=== PATIENT | female | born 1960 | race Caucasian/White ===

== ENCOUNTER 2016-11-22 05:31 | Outpatient (CLI) | payer OTHER ==
[~2016-11-22] VITALS: Ht 167.6 cm; Wt 90.7 kg
[~2016-11-22 05:31] MED LIST: CYCL10TA9 PO; DIABETIC; ENAL5TAB; ESTR1PAT33 TD; EXEN10PE SQ; FLUO20CA25 PO; GLIM1TAB; GLIM2TAB PO; HCT25T PO; HYDR-707 PO; ISN300T; MULT-974 PO; NFMET1000 PO; PYRI50TA; estrogen patch
[2016-11-22] MEDS ORDERED: FURO20TA4 PO (15:33)
[2016-11-22] MEDS ORDERED: DULA0.75 SQ (15:33)
[2016-11-22] MEDS ORDERED: DAPA10TA PO (15:33)
[2016-11-22] MEDS ORDERED: ASPI-586 PO (15:34)
[2016-11-25] MEDS ORDERED: HYDR-3820 PO (11:03)
== END 2016-11-22 15:39 ==
LOC: PREOP 05:31
PROVIDERS: ATTEND Surgery
DX: Z01.818 Encounter for other preprocedural examination (principal); L72.3 Sebaceous cyst

== ENCOUNTER 2016-11-25 07:47 | Day surgery (SDC) | payer OTHER ==
[~2016-11-25] VITALS: Ht 167.6 cm; Wt 90.7 kg
[~2016-11-25 07:47] MED LIST changes: +ASPI-586 PO; +DAPA10TA PO; +DULA0.75 SQ; +FURO20TA4 PO
--- NOTE | 2016-11-25 07:56 | Progress Note-Pre Operative ---
Pre-Operative Progress Note H&P Reviewed The H&P was reviewed, patient examined and no changes noted. Date Seen by Provider: Nov 16, 2016 Time Seen by Provider: 11:00 Date H&P Reviewed: Nov 25, 2016 Time H&P Reviewed: 07:56 Pre-Operative Diagnosis: sebaceous cyst of upper abdominal wall BIANCA PÉREZ MD Nov 25, 2016 7:56 am
[2016-11-25 08:05] VITALS: BP 125/87
[2016-11-25] MEDS ORDERED: ceFAZolin 2 GM/NS 50 ML IV ONE (08:45)
[2016-11-25] MEDS ORDERED: LACTATED RINGERS 1,000 ML IV PRN (09:01)
[2016-11-25] MEDS ORDERED: BUP/EPI 0.5% 1:200,000 (MARCAINE) 10ML VIAL IJ ONE (09:30)
[2016-11-25] MEDS ORDERED: LIDOCAINE PF 2% 5 ML (XYLOCAINE) VIAL ONE (09:44)
[2016-11-25] MEDS ORDERED: proPOfol 200 MG/20 ML (DIPRIVAN) VIAL IV ONE (09:44)
[2016-11-25] MEDS ORDERED: LACTATED RINGERS 1,000 ML IV ONE (09:44)
[2016-11-25] MEDS ORDERED: MIDAZOLAM 2 MG/2 ML (VERSED) VIAL ONE ×2 (09:44→10:14)
[2016-11-25] MEDS ORDERED: KETAMINE HCL 100 MG/ML 5 ML VIAL ONE (10:14)
[2016-11-25] MEDS ORDERED: morphine INJ 10 MG/ML 1ML (SYR OR VIAL) IVP PRN (11:00)
--- NOTE | 2016-11-25 11:02 | Operative Report ---
Operative Report Date of Procedure/Surgery Nov 25, 2016 Surgeon (s) BIANCA PÉREZ MD Show Operations Supervisor (s): Not applicable Post-Operative Diagnosis Same Procedure Performed Excision Description of Procedure Anesthesia Type: MAC Estimated blood loss (mL): Minimal Specimen(s) collected/removed sebaceous cyst Description of the Procedure She was placed supine on the operating table and our anesthesiologist administered sedation, monitoring her vital signs. IV antibiotics were administered intravenously as prophylaxis against wound infection. Upper abdominal wall was prepared and draped in the usual sterile manner. Local anesthesia was achieved using 0.25 percent Marcaine with epinephrine. An elliptical incision about 4 cm long was made in transverse fashion and the cyst excised intact. Hemostasis was achieved using cautery and the incision closed using 3-0 Vicryl for the subcutaneous tissue and 4-0 Vicryl for skin, in a subcuticular fashion and nonadherent dressing was then applied She tolerated the procedure well and was taken back to the nursing area in a stable condition Findings of the Procedure see operative report Allergies and Home Medications Allergies Coded Allergies: Penicillins (Verified Allergy, Unknown, 07/21/05) Home Medications Aspirin 81 Mg Tablet.dr, 81 MG PO DAILY, (Reported) Dapagliflozin Propanediol 10 Mg Tablet, 10 MG PO DAILY, (Reported) Dulaglutide 0.75 Mg/0.5 Ml Pen.injctr, 0.75 MG SQ WEEK, (Reported) Estradiol 1 Each Patch.tdwk, 1 EACH TD ONCE A WEEK, (Reported) Fluoxetine Hcl 20 Mg Capsule, 20 MG PO DAILY, (Reported) Furosemide 20 Mg Tablet, 20 MG PO DAILY PRN for legs swelling, (Reported) Metformin Hcl 1,000 Mg Tablet, 1,000 MG PO BID, (Reported) Multivitamin 1 Each Tablet, 1 EACH PO DAILY, (Reported) BIANCA PÉREZ MD Nov 25, 2016 11:02 am
[2016-11-25] MEDS ORDERED: HYDR-3820 PO (11:03)
--- NOTE | 2016-11-25 11:04 | Discharge Inst-Simple/Standard ---
Discharge Inst-Standard Discharge Medications New, Converted or Re-Newed RX: RX on Chart Patient Instructions/Follow Up Plan of Care/Instructions/FU: Band-Aid off in 48 hours. Follow-up when necessary. No sutures to be removed Activity as Tolerated: Yes Discharge Diet: No Restrictions BIANCA PÉREZ MD Nov 25, 2016 11:04 am
[2016-11-25 11:15] VITALS: BP 122/75
[2016-11-25 11:45] VITALS: BP 118/84
[2016-11-25 12:15] VITALS: BP 123/78
[2016-11-25 12:26] VITALS: BP 123/78
== END 2016-11-25 12:35 | disposition home or self-care (01) ==
LOC: SDC 07:47
PROVIDERS: ATTEND Surgery
DX: L72.3 Sebaceous cyst (principal); E11.43 Type 2 diabetes mellitus with diabetic autonomic (poly)neuropathy; E88.09 Other disorders of plasma-protein metabolism, not elsewhere classified; F41.9 Anxiety disorder, unspecified; E66.9 Obesity, unspecified; Z68.32 Body mass index [BMI] 32.0-32.9, adult; Z79.899 Other long term (current) drug therapy
CPT/HCPCS: 82962; 87081

== ENCOUNTER → 2016-12-12 | Outpatient (CLI) | payer OTHER ==
[~2016-12-12] MED LIST changes: +HYDR-3820 PO
--- NOTE | 2016-12-12 09:37 | Diagnostic Imaging Report ---
INDICATION: Screening. TECHNIQUE: Screening digital mammography was performed bilaterally with a Computer Aided Detection (CAD) system. COMPARISON: 06/30/2015, 01/16/2014, and 11/05/2012. FINDINGS: There is a moderate amount of residual fibroglandular tissue bilaterally. There are a few benign type calcifications. There are benign lymph nodes in the axilla bilaterally. There is no new dominant mass, spiculated lesion, or suspicious calcification identified. The skin, nipples, and axillae are unremarkable. IMPRESSION: Benign findings. ACR BI-RADS Category 2: Benign findings. Result letter will be mailed to the patient. Note: At least 10% of breast cancer is not imaged by mammography. Dictated by: Dictated on workstation # [id number]
== END ==
LOC: RAD 07:39
PROVIDERS: ATTEND Nurse Practitioner
DX: Z12.31 Encounter for screening mammogram for malignant neoplasm of breast (principal)
CPT/HCPCS: 77067

== ENCOUNTER → 2018-03-14 | Outpatient (CLI) | payer OTHER ==
--- NOTE | 2018-03-14 12:19 | Diagnostic Imaging Report ---
INDICATION: Routine screening. COMPARISON: Comparison is made with prior mammograms from 12/12/2016 and 06/30/2015. TECHNIQUE: 2D and 3D bilateral screening mammography was performed with computer-aided detection (CAD) system. FINDINGS: Scattered fibronodular densities are identified bilaterally. The parenchymal pattern is stable. No dominant mass or malignant-appearing microcalcifications are seen. The axillae are unremarkable. IMPRESSION: No mammographic features suspicious for malignancy are identified. ACR BI-RADS Category 1: Negative. Result letter will be mailed to the patient. Note: At least 10% of breast cancer is not imaged by mammography. Dictated by: Dictated on workstation # [id number]
== END ==
LOC: RAD 07:40
PROVIDERS: ATTEND Nurse Practitioner
DX: Z12.31 Encounter for screening mammogram for malignant neoplasm of breast (principal)
CPT/HCPCS: 77067

== ENCOUNTER → 2019-03-20 | Outpatient (CLI) | payer OTHER ==
--- NOTE | 2019-03-20 09:35 | Diagnostic Imaging Report ---
INDICATION: Routine screening. COMPARISON: 03/14/2018 and 12/12/2016. TECHNIQUE: 2D and 3D bilateral screening mammography was performed with CAD. FINDINGS: Scattered fibroglandular densities are identified bilaterally. The nodular density in the right breast appears stable. A nodular density with calcification in the upper and outer aspect of the left breast at anterior depth is noted and appears slightly larger on today's study. Additional views are recommended. No malignant appearing microcalcifications are seen. The axillae are unremarkable. IMPRESSION: Enlarging nodule in the upper and outer aspect of the left breast. Further evaluation with additional views and ultrasound is recommended. ACR BI-RADS Category 0: Incomplete. (Needs additional imaging evaluation). Result letter will be mailed to the patient. Note: At least 10% of breast cancer is not imaged by mammography. Dictated by: Dictated on workstation # [id number]
== END ==
LOC: RAD 07:26
PROVIDERS: ATTEND Obstetrics & Gynecology
DX: Z12.31 Encounter for screening mammogram for malignant neoplasm of breast (principal)
CPT/HCPCS: 77067

== ENCOUNTER → 2019-04-04 | Outpatient (CLI) | payer OTHER ==
--- NOTE | 2019-04-04 08:59 | Diagnostic Imaging Report ---
INDICATION: Left breast nodular density. Patient presents for additional views. Comparison is made with recent screening mammogram from 03/20/2019. Unilateral left 2-D and 3-D diagnostic mammography was performed with CAD. There is a nodular circumscribed density in the outer aspect of the left breast approximately 4 cm from the nipple. This has a small benign calcification along the margin. No other masses are seen. No malignant appearing microcalcifications are identified. IMPRESSION: BI-RADS 0 Persistent nodular density outer left breast approximately 3-4 o'clock location 4 cm from the nipple. Further evaluation with ultrasound is recommended and will be performed today. ACR BI-RADS Category 0: Incomplete. (Needs additional imaging evaluation). Result letter will be mailed to the patient. Note: At least 10% of breast cancer is not imaged by mammography. Dictated by: Dictated on workstation # [id number]
--- NOTE | 2019-04-04 09:51 | Diagnostic Imaging Report ---
INDICATION: Left breast nodule. Correlation is made with diagnostic mammogram earlier the same day as well as the screening mammogram from 03/20/2019. Sonographic interrogation of the outer left breast was performed. There appears to be either a lobulated cyst or 2 adjacent cysts at the 3:00 location of the left breast, 3 cm from the nipple. In aggregate this measures 6 mm x 4 mm x 6 mm. This correlates in size and location to the mammographic density. No internal vascularity is seen. No solid mass is detected. IMPRESSION: BI-RADS Category 2 Left breast cyst accounting for the mammographic density. Patient may return to routine annual screening ACR BI-RADS Category 2: Benign findings. Dictated by: Dictated on workstation # [id number]
== END ==
LOC: RAD 08:30
PROVIDERS: ATTEND Obstetrics & Gynecology
DX: N60.02 Solitary cyst of left breast (principal)
CPT/HCPCS: 76642

== ENCOUNTER → 2020-12-31 | Outpatient (CLI) | payer OTHER ==
[~2020-12-31] MED LIST changes: +ACHYD1T PO; -HYDR-3820 PO
--- NOTE | 2020-12-31 09:46 | Diagnostic Imaging Report ---
Indication: Routine screening. Comparison is made with prior mammogram from 03/20/2019 and 03/14/2018. 2-D and 3-D bilateral screening mammography was performed with CAD. Scattered fibroglandular densities are identified bilaterally. Intraparietal lymph nodes in the upper and outer aspect of the right breast is stable. There are benign nodules in the retroareolar left breast. No spiculated mass or malignant-appearing microcalcifications are seen. There are benign calcifications present. Axillae are unremarkable. IMPRESSION: BI-RADS Category 2 No mammographic features suspicious for malignancy are identified. ACR BI-RADS Category 2: Benign findings. Result letter will be mailed to the patient. Note: At least 10% of breast cancer is not imaged by mammography. Dictated by: Dictated on workstation # [id number]
== END ==
LOC: RAD 08:00
PROVIDERS: ATTEND Family Medicine
DX: Z12.31 Encounter for screening mammogram for malignant neoplasm of breast (principal)
CPT/HCPCS: 77063; 77067

== ENCOUNTER → 2022-01-17 | Outpatient (CLI) | payer OTHER ==
--- NOTE | 2022-01-17 10:10 | Diagnostic Imaging Report ---
INDICATION: Routine screening. COMPARISON: 12/31/2020 and 03/20/2019. TECHNIQUE: 2D and 3D bilateral screening mammography was performed with CAD. FINDINGS: Scattered fibroglandular densities are identified bilaterally. A nodular density in the outer left breast at anterior depth appears stable. No new mass or malignant-appearing microcalcifications are seen. The axillae are unremarkable. IMPRESSION: No mammographic features suspicious for malignancy are identified. ACR BI-RADS Category 2: Benign findings. Result letter will be mailed to the patient. Note: At least 10% of breast cancer is not imaged by mammography. Dictated by: Dictated on workstation # [id number]
== END ==
LOC: RAD 07:20
PROVIDERS: ATTEND Family Medicine
DX: Z12.31 Encounter for screening mammogram for malignant neoplasm of breast (principal)
CPT/HCPCS: 77063; 77067

== ENCOUNTER → 2023-01-24 | Outpatient (CLI) | payer BC ==
--- NOTE | 2023-01-24 15:15 | Diagnostic Imaging Report ---
INDICATION: Bilateral digital 2-D and 3-D screening with CAD. COMPARISON: 01/2022, 12/2020 and 03/2019. FINDINGS: Density 1 Axilla and axillary tail, intramammary lymph node stable. No suspicious mass. No spiculated lesion, architectural distortion or suspicious calcifications. No findings to suggest malignancy. IMPRESSION: Stable benign findings BI-RADS Category 2 ACR BI-RADS Category 2: Benign findings. Result letter will be mailed to the patient. Note: At least 10% of breast cancer is not imaged by mammography. Dictated by: Dictated on workstation # [id number]
== END ==
LOC: RAD 07:30
PROVIDERS: ATTEND Physician Assistant
DX: Z12.31 Encounter for screening mammogram for malignant neoplasm of breast (principal)
CPT/HCPCS: 77063; 77067

== ENCOUNTER → 2023-02-17 | Outpatient (CLI) | payer BC ==
[~2023-02-17] MED LIST changes: +ASCO100024 PO; +ATOR20TA66 PO; +BIOT1TAB PO; +GADOTERATE 0.5 MMOL/ML (CLARISCAN) 20 ML VIAL IV ONE; +INSU3INS2 SQ; +NAPR220C11 PO; +ZINC30CA PO
--- NOTE | 2023-02-17 09:32 | Diagnostic Imaging Report ---
PROCEDURE: MR imaging of the brain with and without contrast. TECHNIQUE: Multiplanar, multisequence MR imaging of the brain was performed with and without contrast. INDICATION: Dizziness Comparison: None. FINDINGS: No acute infarct. No acute or chronic hemorrhage. Scattered T2/flair hyperintense signal within the periventricular and subcortical white matter. The ventricles and cortical sulci are normal. No midline shift or mass effect. No intracranial mass or fluid collection. No mass or abnormal enhancement. The 7th and 8th cranial nerves are normal. Normal internal auditory canals. No mass or abnormal enhancement. The trigeminal nerves are normal. No enhancement of the cranial nerves. Sebaceous cyst within the right posterior scalp. IMPRESSION: No acute infarct, mass, or abnormal enhancement. No acute or chronic hemorrhage. Normal internal auditory canal. No mass or abnormal enhancement. Dictated by: Dictated on workstation # [id number]
== END ==
LOC: RAD 08:00
PROVIDERS: ATTEND Physician Assistant
DX: S09.90XA Unspecified injury of head, initial encounter (principal); R42 Dizziness and giddiness; R11.0 Nausea; R19.7 Diarrhea, unspecified
CPT/HCPCS: 70553

== ENCOUNTER 2023-02-22 05:35 | Outpatient (CLI) | payer BC ==
[~2023-02-22] VITALS: Ht 167.6 cm; Wt 123.8 kg
[~2023-02-22 05:35] MED LIST changes: -ASCO100024 PO; -ATOR20TA66 PO; -BIOT1TAB PO; -GADOTERATE 0.5 MMOL/ML (CLARISCAN) 20 ML VIAL IV ONE; -INSU3INS2 SQ; -NAPR220C11 PO; -ZINC30CA PO
[2023-02-22] MEDS ORDERED: INSU3INS2 SQ (10:56)
[2023-02-22] MEDS ORDERED: ATOR20TA66 PO (10:56)
[2023-02-22] MEDS ORDERED: ZINC30CA PO (11:31)
[2023-02-22] MEDS ORDERED: BIOT1TAB PO (11:31)
[2023-02-22] MEDS ORDERED: NAPR220C11 PO (11:31)
[2023-02-22] MEDS ORDERED: ASCO100024 PO (11:31)
== END 2023-02-22 11:47 | disposition home or self-care (01) ==
LOC: PREOP 05:35
PROVIDERS: ATTEND Internal Medicine
DX: Z01.818 Encounter for other preprocedural examination (principal)

== ENCOUNTER 2023-03-03 07:00 | Day surgery (SDC) | payer BC ==
--- NOTE | 2023-02-20 03:19 | HISTORY AND PHYSICAL ---
COLONOSCOPY HISTORY AND PHYSICAL HISTORY OF PRESENT ILLNESS: The patient is a 62-year-old white female referred by screening colonoscopy by ELIJAH Piedra works with Dr. Velásquez. She reports one other colonoscopy 10 years ago that was unremarkable. She does have a son who has reportedly difficult to control ulcerative colitis, but there is no family history of colon cancer or any other GI tract malignancy. She denies bright red blood per rectum, change in bowel habits, abdominal pain, or change in weight. PAST MEDICAL HISTORY: Significant for type 2 diabetes for which she takes Glucophage 100 mg b.i.d. and 25 units of one of the longer acting insulins twice a day. She wears Estradiol patch, change weekly, Prozac 40 mg daily, and Lipitor 20 mg daily. She has no known history of coronary artery disease or cerebrovascular disease. She does report a history of pseudocholinesterase deficiency that came to light after surgery, hysterectomy over 10 years ago. PAST SURGICAL HISTORY: Other than total abdominal hysterectomy for benign reasons/2 C-sections and a throat surgery many years ago. This was for benign reasons. 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 FAMILY HISTORY: Son has ulcerative colitis. Mother living at the age of 84 with irritable bowel syndrome and father of complications of diabetes and COPD at the age of 80, had prostate cancer and history of smoking. REVIEW OF SYSTEMS: CONSTITUTIONAL: Denies night sweats, chills, fever or change in weight. PULMONARY: Denies cough, wheezing or shortness of breath. CARDIOVASCULAR: Denies chest pain, orthopnea, PND, pedal edema or syncope. GASTROINTESTINAL: As noted in the HPI. PHYSICAL EXAMINATION: GENERAL: Reveals a white female, appeared to be in no acute distress. VITAL SIGNS: Blood pressure 128/70, weight 273 pounds, BMI 45. HEENT: Unremarkable. Sclerae nonicteric. CHEST: Clear to auscultation. CARDIOVASCULAR: Reveals a regular rate and rhythm without murmur, S3, or S4. ABDOMEN: Soft, supple without mass, organomegaly, or tenderness. EXTREMITIES: No cyanosis, clubbing or edema. ASSESSMENT AND PLAN: The patient is being set up for screening colonoscopy deemed to be of average risk. Prep instructions with Colyte were given and questions were answered. Warned about signs and symptoms of hypoglycemia considering her diabetes, especially the day before. I will monitor blood sugar more frequently that day. No changes recommended. I thank you for the referral of this pleasant lady. Job ID: [id number] DocumentID: [id number] Dictated Date: 01/30/2023 13:36:42 Court Collections Officer Date: 01/30/2023 13:58:00 Dictated By: ALLEY FISHER MD
[~2023-03-03] VITALS: Ht 167.6 cm; Wt 123.8 kg
[~2023-03-03 07:00] MED LIST changes: +ASCO100024 PO; +ATOR20TA66 PO; +BIOT1TAB PO; +INSU3INS2 SQ; +NAPR220C11 PO; +ZINC30CA PO
[2023-03-03] MEDS ORDERED: LACTATED RINGERS 1,000 ML 1,000 ML IV STA (07:08)
[2023-03-03] MEDS ORDERED: MIDAZOLAM INJ 2 MG/2 ML VIAL ONE (07:39)
[2023-03-03 07:44] VITALS: BP 142/81
--- NOTE | 2023-03-03 07:52 | Pre-Op Note & Conscious Sedat ---
Pre-Operative Progress Note Date H&P Reviewed: Mar 03, 2023 Time H&P Reviewed: 07:52 History & Physical: H&P Reviewed, Patient Examed, No changes noted Pre-Op Diagnosis: screening Moderate Sedation PreProcedure ASA Score 2 Airway Lungs Heart ASA score ASA 1: a normal healthy patient ASA 2: a patient with a mild systemic disease (mid diabetes, controlled hypertension, obesity ASA 3: a patient with a severe systemic disease that limits activity (angina, COPD, prior Myocardial infarction) ASA 4: a patient with an incapacitating disease that is a constant threat to life (CHF, renal failure) ASA 5: a moribund patient not expected to survive 24 hrs. (ruptured aneurysm) ASA 6: a declared brain- patient whose organs are being harvested. For emergent operations, add the letter E after the classification Mallampati Classification Grade 2 Sedation Plan Analgesia, Amnesia, Plan communicated to team members, Discussed options with patient/fam, Discussed risks with patient/fam The patient is an appropriate candidate to undergo the planned procedure, sedation, and anesthesia. The patient immediately re-assessed prior to indication. ALLEY FISHER MD Mar 03, 2023 07:52
[2023-03-03 08:20] VITALS: BP 89/54
--- NOTE | 2023-03-03 08:23 | Progress Note-Post Operative ---
Post-Procedure Note Physician (s)/Rn First Assistant (s) Physician ALLEY FISHER MD Pre-Procedure Diagnosis Pre-Procedure Diagnosis: screening Post-Procedure Diagnosis Post-operative diagnosis: Prior to undergoing colonoscopy digital rectal evaluation was performed. Anal sphincter tone was normal and the perianal reflexes intact. No abnormalities noted on digital inspection anal canal or distal rectal vault. The colonoscope was then inserted into the rectum and under direct visualization advanced to the cecum. The cecum was identified by the indication of the ileocecal valve and cecal strap. Photographic documentation was obtained. Careful inspection was made as the colonoscope was withdrawn. Quality the prep was good. Findings: There are no evidence for internal or external hemorrhoids and the rectum was unremarkable. Several small sigmoid diverticulum were present without evidence for diverticulitis. No other sigmoid colonic abnormalities are appreciated. The descending colon splenic flexure transverse colon hepatic flexure ascending colon and cecum were unremarkable. A/P 1. Mild diverticular disease confined to the sigmoid colon is present without evidence for diverticulitis. This is otherwise normal colonoscopy to the cecum under good prep conditions. Would advocate consideration of repeat screening colonoscopy in 10 years. I thank you for the furl is pleasant lady sincerely Alley Fisher MD. CC: Dr. Alee FISHER,ALLEY Goncalves MD Mar 03, 2023 08:23
[2023-03-03 08:25] VITALS: BP 92/51
[2023-03-03 08:30] VITALS: BP 106/54
[2023-03-03 08:50] VITALS: BP 106/54
--- NOTE | 2023-03-03 12:21 | Anesthesia-General Post-Op ---
MAC Patient Condition Mental Status/LOC: Same as Preop Cardiovascular: Satisfactory Nausea/Vomiting: Absent Respiratory: Satisfactory Pain: Controlled Complications: Absent Post Op Complications Complications None Follow Up Care/Instructions Patient Instructions None needed. Anesthesiology Discharge Order Discharge Order Patient is doing well, no complaints, stable vital signs, no apparent adverse anesthesia problems. No complications reported per nursing. MATEUSZ PAK CRNA Mar 03, 2023 12:21
== END 2023-03-03 08:54 | disposition home or self-care (01) ==
LOC: ENDO 07:00
PROVIDERS: ATTEND Internal Medicine
DX: Z12.11 Encounter for screening for malignant neoplasm of colon (principal); K57.30 Diverticulosis of large intestine without perforation or abscess without bleeding; E11.40 Type 2 diabetes mellitus with diabetic neuropathy, unspecified; Z79.4 Long term (current) use of insulin; Z79.84 Long term (current) use of oral hypoglycemic drugs; Z83.79 Family history of other diseases of the digestive system